=== PATIENT | male | born 1945 | race Hispanic/Latino ===

== ENCOUNTER 2019-11-15 22:56 | Inpatient (IN) | payer MEDICARE ==
[~2019-11-15] VITALS: Ht 172.7 cm; Wt 79.4 kg
[2019-11-16 10:07] VITALS: BP 132/54
[2019-11-16 11:00] VITALS: BP 148/68
--- NOTE | 2019-11-16 11:06 | NUR ---
SPOKE WITH ANGELIA DEL CID NP AND MADE HIM AWARE OF THE NEW ADMISSION.
[2019-11-16] MEDS ORDERED: ACETAMINOPHEN 325 MG TAB PO PRN ×2 (11:30)
[2019-11-16] MEDS ORDERED: GUAIFENESIN-DM 200/20 MG 10 ML PO PRN (11:30)
[2019-11-16] MEDS ORDERED: ERGOCALCIFEROL (VITAMIN D2) 50,000 UNIT CAPSULE PO SCH (11:30)
[2019-11-16] MEDS: AZITHROMYCIN 500MG+NS 250ML 250 ML IV SCH (12:55)
[2019-11-16] MEDS: CEFTRIAXONE SODIUM 1 GM IVP SCH ×2 (12:55→22:44)
[2019-11-16 13:33] LABS: CREATININE 1.1 mg/dL (0.5-1.5); POTASSIUM 4.8 mmol/L (3.5-5.1)
[2019-11-16 13:42] LABS: ALBUMIN 2.2 g/dL (3.5-5.0); BILIRUBIN,TOTAL 0.3 mg/dL (0.2-1.0); TOTAL PROTEIN, SERUM 7.4 g/dL (6.0-8.3)
[2019-11-16 13:50] LABS: CRP QUANTITATIVE 194.6 mg/L (0.00-9.0)
[2019-11-16 15:00] VITALS: BP 136/55
--- NOTE | 2019-11-16 15:40 | NUR ---
MD MUELLER made aware of d-dimer 929, stated she will put in orders
[2019-11-16] MEDS: METHYLPREDNISOLONE SOD SUCC 40MG/ML 1ML IVP SCH ×2 (16:33→20:40)
--- NOTE | 2019-11-16 18:27 | NUR ---
Pt alert, showed no signs and symptoms of distress, pt was told his today and was upset at first but pt remained calm and stable, ABT with no adverse reactions, pt stated no pain,
[2019-11-16] MEDS: FAMOTIDINE/PF 20 MG/2 ML VIAL IV SCH (20:40)
[2019-11-16 21:51] VITALS: BP 147/75
[2019-11-17 00:43] VITALS: BP 149/56
[2019-11-17 04:19] VITALS: BP 132/75
[2019-11-17 05:18] LABS: BASOPHILS % (AUTO) 0.2 % (0.0-5.0); HEMATOCRIT 44.7 % (42-54); LYMPHOCYTES % (AUTO) 5.9 % (21.0-51.0); MEAN CORPUSCULAR HEMOGLOBIN 28.9 pg (27.0-33.0); MEAN CORPUSCULAR HGB CONC 32.2 g/dL (32.0-36.0); MEAN CORPUSCULAR VOLUME 89.8 fL (79-99); MONOCYTES % (AUTO) 2.1 % (3.0-13.0); NEUTROPHILS % (AUTO) 91.1 % (40.0-77.0); PLATELET COUNT (AUTO) 521 K/uL (130-400); RED BLOOD CELL COUNT(AUTO) 4.98 MIL/uL (4.50-6.20); RED CELL DISTRIBUTION WIDTH 12.8 % (11.0-15.5); WHITE BLOOD COUNT (AUTO) 11.8 K/uL (4.8-10.8)
[2019-11-17 05:31] LABS: CREATININE 1.1 mg/dL (0.5-1.5); POTASSIUM 4.4 mmol/L (3.5-5.1)
[2019-11-17 05:36] LABS: ALBUMIN 2.2 g/dL (3.5-5.0); BILIRUBIN,TOTAL 0.3 mg/dL (0.2-1.0); CRP QUANTITATIVE 102.8 mg/L (0.00-9.0); TOTAL PROTEIN, SERUM 7.1 g/dL (6.0-8.3)
[2019-11-17 08:00] VITALS: BP 146/68
[2019-11-17] MEDS: FAMOTIDINE/PF 20 MG/2 ML VIAL IV SCH ×2 (08:05→19:43)
[2019-11-17] MEDS: METHYLPREDNISOLONE SOD SUCC 40MG/ML 1ML IVP SCH ×3 (08:05→19:43)
[2019-11-17] MEDS: ZINC SULFATE 220 CAPSULE PO SCH (08:06)
[2019-11-17] MEDS: ASCORBIC ACID 500 MG TAB PO SCH (08:06)
[2019-11-17] MEDS: ENOXAPARIN SODIUM 40 MG/0.4 ML SYRINGE SQ SCH (08:07)
[2019-11-17] MEDS ORDERED: ENOXAPARIN SODIUM 40 MG/0.4 ML SYRINGE SQ SCH (09:00)
[2019-11-17] MEDS: AZITHROMYCIN 500MG+NS 250ML 250 ML IV SCH (11:35)
[2019-11-17] MEDS: CEFTRIAXONE SODIUM 1 GM IVP SCH ×2 (11:35→23:30)
[2019-11-17 12:00] VITALS: BP 153/66
[2019-11-17] MEDS: PHARMACY COMMUNICATION MISC SCH ×2 (12:45→20:45)
[2019-11-17 16:00] VITALS: BP 163/82
--- NOTE | 2019-11-17 16:48 | NUR ---
INITIAL SW spoke to patient's daughter, Melvi Knutson. Patient lived with spouse but spouse at this hospital on 11/16/2019. He lives in [place]. Patient has no home services or DME. Patient is able to complete ADL's independently and drives. PCP is Dr. Dangelo Smith. Pharmacy is [facility] in [place]. DCP is home. Addendum: 11/17/19 at 1650 by NENITA GOMES SS Amended: Links added.
[2019-11-17 20:40] VITALS: BP 148/68
[2019-11-18 04:12] LABS: BASOPHILS % (AUTO) 0.2 % (0.0-5.0); HEMATOCRIT 40.6 % (42-54); MEAN CORPUSCULAR HEMOGLOBIN 28.8 pg (27.0-33.0); MEAN CORPUSCULAR HGB CONC 33.3 g/dL (32.0-36.0); MEAN CORPUSCULAR VOLUME 86.8 fL (79-99); MONOCYTES % (AUTO) 5.7 % (3.0-13.0); NEUTROPHILS % (AUTO) 90.6 % (40.0-77.0); PLATELET COUNT (AUTO) 316 K/uL (130-400); RED BLOOD CELL COUNT(AUTO) 4.68 MIL/uL (4.50-6.20); RED CELL DISTRIBUTION WIDTH 12.4 % (11.0-15.5); WHITE BLOOD COUNT (AUTO) 13.2 K/uL (4.8-10.8)
[2019-11-18 04:17] LABS: CREATININE 1.1 mg/dL (0.5-1.5); POTASSIUM 4.5 mmol/L (3.5-5.1)
[2019-11-18 05:44] VITALS: BP 154/82
[2019-11-18 08:00] VITALS: BP 144/65
[2019-11-18] MEDS: ASCORBIC ACID 500 MG TAB PO SCH (09:03)
[2019-11-18] MEDS: METHYLPREDNISOLONE SOD SUCC 40MG/ML 1ML IVP SCH ×3 (09:03→19:25)
[2019-11-18] MEDS: FAMOTIDINE/PF 20 MG/2 ML VIAL IV SCH ×2 (09:03→19:25)
[2019-11-18] MEDS: ENOXAPARIN SODIUM 40 MG/0.4 ML SYRINGE SQ SCH (09:04)
[2019-11-18] MEDS: ZINC SULFATE 220 CAPSULE PO SCH (09:04)
[2019-11-18] MEDS: AZITHROMYCIN 500MG+NS 250ML 250 ML IV SCH (11:44)
[2019-11-18] MEDS: CEFTRIAXONE SODIUM 1 GM IVP SCH (11:44)
[2019-11-18 12:00] VITALS: BP 167/72
[2019-11-18 16:00] VITALS: BP 166/72
[2019-11-18] MEDS ORDERED: PHARMACY COMMUNICATION MISC SCH ×2 (16:15→17:45)
[2019-11-18] MEDS ORDERED: COMPOUND IV REFRIGERATED 1 EACH IVSOLN MISC PRN (18:00)
[2019-11-18] MEDS ORDERED: IVERMECTIN 3 MG TAB PO ONE (18:30)
[2019-11-18 19:30] VITALS: BP 163/73
[2019-11-18] MEDS ORDERED: REMDESIVIR (EUA) 520 200 MG in SODIUM CHLORIDE 0.9% 250 ML IV ONE (20:00)
--- NOTE | 2019-11-18 21:59 | NUR ---
Pt laying flat in bed on his back, alert, pt stated no pain, showed no signs and symptoms of distress, ABT with no adverse reaction, Remdesivir given, pt is on oxygen therapy Venti mask on 50% oxygen sat at 96%, will continue to monitor pt,
[2019-11-19] VITALS: BP 151/69
[2019-11-19] MEDS: CEFTRIAXONE SODIUM 1 GM IVP SCH ×3 (00:11→23:10)
[2019-11-19 04:00] VITALS: BP 155/61
[2019-11-19 07:31] LABS: BASOPHILS % (AUTO) 0.2 % (0.0-5.0); HEMATOCRIT 42.7 % (42-54); LYMPHOCYTES % (AUTO) 3.5 % (21.0-51.0); MEAN CORPUSCULAR HEMOGLOBIN 28.6 pg (27.0-33.0); MEAN CORPUSCULAR HGB CONC 33.3 g/dL (32.0-36.0); MEAN CORPUSCULAR VOLUME 85.9 fL (79-99); MONOCYTES % (AUTO) 5.9 % (3.0-13.0); NEUTROPHILS % (AUTO) 89.3 % (40.0-77.0); PLATELET COUNT (AUTO) 295 K/uL (130-400); RED BLOOD CELL COUNT(AUTO) 4.97 MIL/uL (4.50-6.20); RED CELL DISTRIBUTION WIDTH 12.4 % (11.0-15.5); WHITE BLOOD COUNT (AUTO) 12.3 K/uL (4.8-10.8)
[2019-11-19 08:00] VITALS: BP 137/66
[2019-11-19] MEDS: ASCORBIC ACID 500 MG TAB PO SCH (08:44)
[2019-11-19] MEDS: FAMOTIDINE/PF 20 MG/2 ML VIAL IV SCH ×2 (08:44→20:31)
[2019-11-19] MEDS: ZINC SULFATE 220 CAPSULE PO SCH (08:44)
[2019-11-19] MEDS: METHYLPREDNISOLONE SOD SUCC 40MG/ML 1ML IVP SCH ×3 (08:44→20:32)
[2019-11-19] MEDS: ENOXAPARIN SODIUM 40 MG/0.4 ML SYRINGE SQ SCH (08:45)
[2019-11-19] MEDS: ONDANSETRON HCL 4 MG/2 ML VIAL IVP PRN (09:59)
[2019-11-19 12:00] VITALS: BP 162/76
[2019-11-19] MEDS: AZITHROMYCIN 500MG+NS 250ML 250 ML IV SCH (12:09)
[2019-11-19 16:00] VITALS: BP 143/79
[2019-11-19 19:30] VITALS: BP 163/73
[2019-11-19] MEDS: REMDESIVIR (EUA) 520 100 MG in SODIUM CHLORIDE 0.9% 250 ML IV SCH (20:30)
[2019-11-20] VITALS (7 sets, daily range): BP systolic 135–158; BP diastolic 67–83
[2019-11-20 04:57] LABS: BASOPHILS % (AUTO) 0.2 % (0.0-5.0); HEMATOCRIT 39.2 % (42-54); LYMPHOCYTES % (AUTO) 2.8 % (21.0-51.0); MEAN CORPUSCULAR HEMOGLOBIN 28.5 pg (27.0-33.0); MEAN CORPUSCULAR HGB CONC 33.4 g/dL (32.0-36.0); MEAN CORPUSCULAR VOLUME 85.4 fL (79-99); MONOCYTES % (AUTO) 5.8 % (3.0-13.0); NEUTROPHILS % (AUTO) 89.7 % (40.0-77.0); PLATELET COUNT (AUTO) 244 K/uL (130-400); RED BLOOD CELL COUNT(AUTO) 4.59 MIL/uL (4.50-6.20); RED CELL DISTRIBUTION WIDTH 12.4 % (11.0-15.5)
[2019-11-20 05:08] LABS: POTASSIUM 4.5 mmol/L (3.5-5.1)
[2019-11-20] MEDS: FAMOTIDINE/PF 20 MG/2 ML VIAL IV SCH ×2 (07:51→20:15)
[2019-11-20] MEDS: ZINC SULFATE 220 CAPSULE PO SCH (07:51)
[2019-11-20] MEDS: ASCORBIC ACID 500 MG TAB PO SCH (07:51)
[2019-11-20] MEDS: METHYLPREDNISOLONE SOD SUCC 40MG/ML 1ML IVP SCH ×3 (07:51→20:31)
[2019-11-20] MEDS: ENOXAPARIN SODIUM 40 MG/0.4 ML SYRINGE SQ SCH (07:52)
[2019-11-20] MEDS: AZITHROMYCIN 500MG+NS 250ML 250 ML IV SCH (11:06)
[2019-11-20] MEDS: ONDANSETRON HCL 4 MG/2 ML VIAL IVP PRN (11:07)
[2019-11-20] MEDS: CEFTRIAXONE SODIUM 1 GM IVP SCH ×2 (11:08→22:32)
[2019-11-20] MEDS: ENOXAPARIN SODIUM 80 MG/0.8 ML SQ SCH ×2 (14:53→14:57)
--- NOTE | 2019-11-20 18:33 | NUR ---
Pt Covid pcr test came back positive, pt and daughter Vira was notified, pt is alert sitting up in chair onside of the bed, venti mask on 50% oxygen, showed no signs and symptoms of distress, will continue to monitor pt
[2019-11-20] MEDS: REMDESIVIR (EUA) 520 100 MG in SODIUM CHLORIDE 0.9% 250 ML IV SCH (20:14)
--- NOTE | 2019-11-20 20:45 | NUR ---
TEACHING PATIENT AWAKE, ALERT , OX3,CONTINUE ON VM 50 %, TEACH PATIENT PLAN OF CARE AND EXPECTED OUTCOME, teACH PATIENT PENDING PLASMA, PATIENT AGREES WITH PLASMA TRANSFUSION, CONSENT OBTAINED, Patient verbalizes understanding via teach back
[2019-11-21 04:00] VITALS: BP 158/67
[2019-11-21] MEDS: ASCORBIC ACID 500 MG TAB PO SCH (08:14)
[2019-11-21] MEDS: ZINC SULFATE 220 CAPSULE PO SCH (08:14)
[2019-11-21] MEDS: METHYLPREDNISOLONE SOD SUCC 40MG/ML 1ML IVP SCH ×3 (08:14→20:19)
[2019-11-21] MEDS: ENOXAPARIN SODIUM 80 MG/0.8 ML SQ SCH ×2 (08:15→20:20)
[2019-11-21] MEDS: FAMOTIDINE/PF 20 MG/2 ML VIAL IV SCH ×2 (08:15→20:19)
[2019-11-21 09:40] VITALS: BP 147/73
[2019-11-21] MEDS: ONDANSETRON HCL 4 MG/2 ML VIAL IVP PRN (10:25)
[2019-11-21] MEDS: AZITHROMYCIN 500MG+NS 250ML 250 ML IV SCH (11:28)
[2019-11-21] MEDS: CEFTRIAXONE SODIUM 1 GM IVP SCH ×2 (11:28→20:19)
[2019-11-21 12:22] VITALS: BP 166/77
[2019-11-21 16:27] VITALS: BP 120/69
[2019-11-21] MEDS: REMDESIVIR (EUA) 520 100 MG in SODIUM CHLORIDE 0.9% 250 ML IV SCH (20:21)
[2019-11-21 21:13] VITALS: BP 120/47
[2019-11-21] MEDS ORDERED: SODIUM CHLORIDE 0.9% 500ML 500 ML IV ONE (21:58)
--- NOTE | 2019-11-21 22:15 | NUR ---
plasma first unit of plasma started as ordered, see plasma record
--- NOTE | 2019-11-21 23:05 | NUR ---
plasma first plasma complete no reaction noted, tolerated well
--- NOTE | 2019-11-21 23:50 | NUR ---
2 nd unit plasma 2nd unit of plasma started , see plasma administration record
[2019-11-21 23:56] VITALS: BP 195/88
[2019-11-22] MEDS: BENZONATATE 100 MG CAPSULE PO PRN (00:02)
--- NOTE | 2019-11-22 00:30 | NUR ---
2nd unit plasma 2nd unit plasma complete , tolerated well, no reaction noted
[2019-11-22 06:56] VITALS: BP 137/63
[2019-11-22] MEDS ORDERED: HYDRALAZINE HCL 20 MG/ML VIAL IV PRN (07:30)
[2019-11-22] MEDS: ASCORBIC ACID 500 MG TAB PO SCH (08:34)
[2019-11-22] MEDS: METHYLPREDNISOLONE SOD SUCC 40MG/ML 1ML IVP SCH (08:34)
[2019-11-22] MEDS: FAMOTIDINE/PF 20 MG/2 ML VIAL IV SCH ×2 (08:34→20:40)
[2019-11-22] MEDS: ZINC SULFATE 220 CAPSULE PO SCH (08:35)
[2019-11-22] MEDS: ENOXAPARIN SODIUM 80 MG/0.8 ML SQ SCH ×2 (08:35→20:40)
[2019-11-22 08:50] VITALS: BP 147/53
[2019-11-22 11:06] VITALS: BP 138/86
[2019-11-22] MEDS: AZITHROMYCIN 500MG+NS 250ML 250 ML IV SCH (12:42)
[2019-11-22] MEDS: CEFTRIAXONE SODIUM 1 GM IVP SCH ×2 (12:42→20:40)
[2019-11-22 17:15] VITALS: BP 116/44
--- NOTE | 2019-11-22 18:23 | NUR ---
Pt alert sitting in chair by his bed, showed no signs and symptoms of distress, pt stated no pain, family sent food pt do not have an appetite, pt on 50% venti mask oxygen saturation of 94%,
[2019-11-22] MEDS: REMDESIVIR (EUA) 520 100 MG in SODIUM CHLORIDE 0.9% 250 ML IV SCH (20:43)
[2019-11-22 21:03] VITALS: BP 132/82
[2019-11-23] VITALS (7 sets, daily range): BP systolic 135–149; BP diastolic 44–100
[2019-11-23 04:04] LABS: BASOPHILS % (AUTO) 0.2 % (0.0-5.0); EOSINOPHILS % (AUTO) 0.4 % (0.0-8.0); HEMATOCRIT 40.3 % (42-54); MEAN CORPUSCULAR HEMOGLOBIN 28.6 pg (27.0-33.0); MEAN CORPUSCULAR HGB CONC 33.3 g/dL (32.0-36.0); MEAN CORPUSCULAR VOLUME 85.9 fL (79-99); MONOCYTES % (AUTO) 4.4 % (3.0-13.0); NEUTROPHILS % (AUTO) 88.6 % (40.0-77.0); PLATELET COUNT (AUTO) 433 K/uL (130-400); RED BLOOD CELL COUNT(AUTO) 4.69 MIL/uL (4.50-6.20); RED CELL DISTRIBUTION WIDTH 12.6 % (11.0-15.5); WHITE BLOOD COUNT (AUTO) 20.1 K/uL (4.8-10.8)
[2019-11-23 04:16] LABS: CREATININE 1.1 mg/dL (0.5-1.5); CRP QUANTITATIVE 57.6 mg/L (0.00-9.0); POTASSIUM 3.3 mmol/L (3.5-5.1)
[2019-11-23] MEDS ORDERED: POTASSIUM CHLORIDE 10% ELIXIR 20 MEQ/15 ML UDCUP PO PRN (04:45)
[2019-11-23] MEDS ORDERED: POTASSIUM CHLORIDE 20MEQ/100ML 100 ML IV PRN (04:45)
[2019-11-23] MEDS ORDERED: LIDOCAINE HCL-MPF 1% 2ML VIAL IV PRN (04:45)
[2019-11-23] MEDS ORDERED: POTASSIUM CHLORIDE 20 MEQ ERTAB PO ONE (04:58)
[2019-11-23] MEDS ORDERED: DEXAMETHASONE 4 MG TAB PO SCH (08:00)
[2019-11-23] MEDS: ASCORBIC ACID 500 MG TAB PO SCH (09:32)
[2019-11-23] MEDS: ENOXAPARIN SODIUM 80 MG/0.8 ML SQ SCH ×2 (09:32→21:56)
[2019-11-23] MEDS: FAMOTIDINE/PF 20 MG/2 ML VIAL IV SCH ×2 (09:32→21:56)
[2019-11-23] MEDS: ZINC SULFATE 220 CAPSULE PO SCH (09:32)
--- NOTE | 2019-11-23 19:45 | NUR ---
PM Assessment Received pt sited on his bedside chair, on Venti Mask at 40%, routine assessment done, plan of care discuss, pt made once his oxygen saturation will be reading in the high 90's I will try to wean his oxygen consumption, at this time we will keep it at 40% as reported O2 saturation at 92%. Pt denies discomfort, claimed sometimes he takes of his mask when getting on off the bed as it does not reach around his bed, or if he needs to use the bathroom, denies SOB.
[2019-11-24 00:30] VITALS: BP 161/72
--- NOTE | 2019-11-24 05:35 | NUR ---
Re: Desaturation Pt noted had ambulated to the bathroom without his O2 to have a BM, positive SOB, O2 saturation checked = 82%, assisted back to bed, Venti mask increased to 50% at this time.
[2019-11-24 06:18] VITALS: BP 108/25
[2019-11-24 08:15] VITALS: BP 148/62
[2019-11-24] MEDS: ASCORBIC ACID 500 MG TAB PO SCH (08:37)
[2019-11-24] MEDS: ZINC SULFATE 220 CAPSULE PO SCH (08:48)
[2019-11-24] MEDS: FAMOTIDINE/PF 20 MG/2 ML VIAL IV SCH ×2 (08:48→20:49)
[2019-11-24] MEDS: ENOXAPARIN SODIUM 80 MG/0.8 ML SQ SCH ×2 (08:49→20:50)
[2019-11-24 12:09] VITALS: BP 121/77
[2019-11-24 15:54] VITALS: BP 142/103
--- NOTE | 2019-11-24 17:33 | NUR ---
pt awake and oriented, denies pain and shortness of breath. pt requesting shower today. Patient patient care associate able to assist pt to the bathroom with portable oxygen tank to maintain oxygenation. Pt tolerated well.
[2019-11-24 21:23] VITALS: BP 158/73
[2019-11-25 01:12] VITALS: BP 145/60
[2019-11-25 06:39] VITALS: BP 144/56
[2019-11-25 08:46] VITALS: BP 129/54
[2019-11-25] MEDS: FAMOTIDINE/PF 20 MG/2 ML VIAL IV SCH ×2 (09:10→20:40)
[2019-11-25] MEDS: ASCORBIC ACID 500 MG TAB PO SCH (09:11)
[2019-11-25] MEDS: ZINC SULFATE 220 CAPSULE PO SCH (09:11)
[2019-11-25] MEDS: LORATADINE/PSEUDOEPHED 5/120 MG 1 EACH TAB.SR.12H PO SCH ×2 (09:11→20:40)
[2019-11-25] MEDS: ENOXAPARIN SODIUM 80 MG/0.8 ML SQ SCH ×2 (09:12→20:41)
[2019-11-25] MEDS: DEXAMETHASONE SOD PHOSPHATE 4 MG/ML 1ML VIAL IV SCH (09:13)
[2019-11-25 12:56] VITALS: BP 146/72
[2019-11-25 16:30] VITALS: BP 150/86
--- NOTE | 2019-11-25 17:23 | NUR ---
pt denies pain and discomfort today, up to chair for meals. Pt on the phone speaking with family no resp distress observed or reported. Rounded with POWER MANAGER regarding plan of care. per POWER MANAGER pt's oxygen saturation will continued to be monitored until stable for discharge.
[2019-11-25 21:53] VITALS: BP 141/82
[2019-11-26] VITALS (7 sets, daily range): BP systolic 113–171; BP diastolic 58–89
[2019-11-26 06:04] LABS: BASOPHILS % (AUTO) 0.1 % (0.0-5.0); EOSINOPHILS % (AUTO) 0.1 % (0.0-8.0); HEMATOCRIT 36.4 % (42-54); LYMPHOCYTES % (AUTO) 4.8 % (21.0-51.0); MEAN CORPUSCULAR HEMOGLOBIN 29.1 pg (27.0-33.0); MEAN CORPUSCULAR HGB CONC 34.1 g/dL (32.0-36.0); MEAN CORPUSCULAR VOLUME 85.4 fL (79-99); MONOCYTES % (AUTO) 5.5 % (3.0-13.0); PLATELET COUNT (AUTO) 359 K/uL (130-400); RED BLOOD CELL COUNT(AUTO) 4.26 MIL/uL (4.50-6.20); RED CELL DISTRIBUTION WIDTH 12.7 % (11.0-15.5); WHITE BLOOD COUNT (AUTO) 14.7 K/uL (4.8-10.8)
[2019-11-26 06:39] LABS: ALBUMIN 1.9 g/dL (3.5-5.0); BILIRUBIN,TOTAL 0.6 mg/dL (0.2-1.0); POTASSIUM 3.5 mmol/L (3.5-5.1)
[2019-11-26 06:40] LABS: CREATININE 0.8 mg/dL (0.5-1.5); CRP QUANTITATIVE 79.7 mg/L (0.00-9.0); TOTAL PROTEIN, SERUM 5.4 g/dL (6.0-8.3)
--- NOTE | 2019-11-26 08:00 | NUR ---
PT AAO X 3 REVIEW PLAN OF CARE, ON 40% VENTI MASK, DENIES ANY SOB. PT SITTING UP . CALL LIGHT IN REACH..
[2019-11-26] MEDS: ZINC SULFATE 220 CAPSULE PO SCH (09:25)
[2019-11-26] MEDS: ASCORBIC ACID 500 MG TAB PO SCH (09:25)
[2019-11-26] MEDS: FAMOTIDINE/PF 20 MG/2 ML VIAL IV SCH ×2 (09:25→21:12)
[2019-11-26] MEDS: DEXAMETHASONE SOD PHOSPHATE 4 MG/ML 1ML VIAL IV SCH (09:26)
[2019-11-26] MEDS: ENOXAPARIN SODIUM 80 MG/0.8 ML SQ SCH ×2 (09:27→21:10)
[2019-11-26] MEDS: LORATADINE/PSEUDOEPHED 5/120 MG 1 EACH TAB.SR.12H PO SCH ×2 (09:30→21:11)
[2019-11-26] MEDS: TRAMADOL HCL 50 MG TABLET PO PRN (15:02)
[2019-11-26] MEDS: POTASSIUM CHLORIDE 20 MEQ ERTAB PO PRN ×2 (15:02→18:10)
[2019-11-27 03:47] VITALS: BP 151/83
[2019-11-27 05:17] LABS: BASOPHILS % (AUTO) 0.1 % (0.0-5.0); EOSINOPHILS % (AUTO) 0.1 % (0.0-8.0); LYMPHOCYTES % (AUTO) 4.7 % (21.0-51.0); MEAN CORPUSCULAR HEMOGLOBIN 28.8 pg (27.0-33.0); MEAN CORPUSCULAR HGB CONC 33.5 g/dL (32.0-36.0); MONOCYTES % (AUTO) 5.4 % (3.0-13.0); NEUTROPHILS % (AUTO) 88.6 % (40.0-77.0); PLATELET COUNT (AUTO) 259 K/uL (130-400); RED BLOOD CELL COUNT(AUTO) 4.65 MIL/uL (4.50-6.20); RED CELL DISTRIBUTION WIDTH 12.8 % (11.0-15.5); WHITE BLOOD COUNT (AUTO) 15.5 K/uL (4.8-10.8)
[2019-11-27 05:29] LABS: ALBUMIN 2.2 g/dL (3.5-5.0); BILIRUBIN,TOTAL 0.6 mg/dL (0.2-1.0); CREATININE 0.8 mg/dL (0.5-1.5); POTASSIUM 4.1 mmol/L (3.5-5.1); TOTAL PROTEIN, SERUM 6.1 g/dL (6.0-8.3)
[2019-11-27 07:30] VITALS: BP 109/56
--- NOTE | 2019-11-27 08:00 | NUR ---
PT UP IN THE CHAIR , PT IS ON A VENTI MASK AT 50% . PT STATED THAT HE FEELS BETTER TODAY. SOME RESP .DISTRESS BUT VERY LITTLE REVIEW THE PLAN OF CARE ,AND CALL LIGHT IN REACH..
[2019-11-27] MEDS: FAMOTIDINE/PF 20 MG/2 ML VIAL IV SCH ×2 (08:37→19:43)
[2019-11-27] MEDS: LORATADINE/PSEUDOEPHED 5/120 MG 1 EACH TAB.SR.12H PO SCH ×2 (08:37→19:43)
[2019-11-27] MEDS: ASCORBIC ACID 500 MG TAB PO SCH (08:38)
[2019-11-27] MEDS: DEXAMETHASONE SOD PHOSPHATE 4 MG/ML 1ML VIAL IV SCH (08:39)
[2019-11-27] MEDS: ZINC SULFATE 220 CAPSULE PO SCH (08:40)
[2019-11-27] MEDS: ENOXAPARIN SODIUM 80 MG/0.8 ML SQ SCH ×2 (08:40→19:51)
[2019-11-27 11:00] VITALS: BP 153/78
--- NOTE | 2019-11-27 11:01 | NUR ---
RDSCREEN - LOS X 11 Pt Admitted with SOB, GBW, COVID PUI. Heart Healthy diet order in place. Tolerating at 75% intake. WBC 15.5, Alb 2.2 (Improving). Zinc, vitamin C supplementation in place. Post plasma Tx, prone positioning. Recommend continue Heart healthy diet order Recommend 30mL ProMod QD RD to continue to monitor. Please notify RD as additional nutrition concerns arise. Thank you.
[2019-11-27 16:00] VITALS: BP 101/45
--- NOTE | 2019-11-27 17:06 | NUR ---
DAUGHTER NOT WANTING ORDER FOR SOLARA REFERRAL PLACED IN CHART UNTIL SHE SPEAKS TO THE MDS AND THE NURSES. CALL TO DAUGHTER KENNETH JANNIE JONES PLANNING. ORDER FOR SOLARA. EXPLAINED LTACH AND PURPOSE. DAUGHTER STATED WILL SPEAK TO FAMILY.. DAUGHTER STATED THAT SHE DID NOT WANT AN ORDER FOR SOLARA PLACED UNTIL SHE HAS SPOKE TO HER FAMILY AN CM ADVISED HER THE ORDER IS AN MD ORDER AND WILL PLACED IN THE MEDICAL RECORD.T THE REFERRAL ITSELF WILL NOT BE DONE UNTIL/UNLESS WE GET CONSENT FOR RELEASE OF INFORMATION. THIS CM NOT SURE THAT DAUGHTER UNDERSTOOD THE DIFFERENCE. ORDER PLACED IN MED RECORD THAT WAS RECEIVED MIDDAY. WILL ADVISED RNS THAT DAUGHTER WILL BE CALLING WITH QUESTIONS RE JEWELL
[2019-11-27 20:45] VITALS: BP 110/61
[2019-11-28] VITALS (7 sets, daily range): BP systolic 98–156; BP diastolic 49–74
[2019-11-28 04:57] LABS: BASOPHILS % (AUTO) 0.1 % (0.0-5.0); EOSINOPHILS % (AUTO) 0.3 % (0.0-8.0); HEMATOCRIT 38.8 % (42-54); MEAN CORPUSCULAR HEMOGLOBIN 28.5 pg (27.0-33.0); MEAN CORPUSCULAR HGB CONC 33.5 g/dL (32.0-36.0); MEAN CORPUSCULAR VOLUME 85.1 fL (79-99); MONOCYTES % (AUTO) 4.9 % (3.0-13.0); NEUTROPHILS % (AUTO) 87.4 % (40.0-77.0); PLATELET COUNT (AUTO) 380 K/uL (130-400); RED BLOOD CELL COUNT(AUTO) 4.56 MIL/uL (4.50-6.20); RED CELL DISTRIBUTION WIDTH 12.9 % (11.0-15.5); WHITE BLOOD COUNT (AUTO) 13.5 K/uL (4.8-10.8)
[2019-11-28 05:47] LABS: ALBUMIN 2.1 g/dL (3.5-5.0); BILIRUBIN,TOTAL 0.6 mg/dL (0.2-1.0); CREATININE 0.8 mg/dL (0.5-1.5); CRP QUANTITATIVE 71.4 mg/L (0.00-9.0); POTASSIUM 3.6 mmol/L (3.5-5.1); TOTAL PROTEIN, SERUM 5.7 g/dL (6.0-8.3)
[2019-11-28] MEDS: POTASSIUM CHLORIDE 20 MEQ ERTAB PO PRN ×3 (05:50→08:10)
[2019-11-28] MEDS: FAMOTIDINE/PF 20 MG/2 ML VIAL IV SCH ×2 (08:08→21:46)
[2019-11-28] MEDS: DEXAMETHASONE SOD PHOSPHATE 4 MG/ML 1ML VIAL IV SCH (08:08)
[2019-11-28] MEDS: ZINC SULFATE 220 CAPSULE PO SCH (08:08)
[2019-11-28] MEDS: ASCORBIC ACID 500 MG TAB PO SCH (08:08)
[2019-11-28] MEDS: BENZONATATE 100 MG CAPSULE PO PRN (08:08)
[2019-11-28] MEDS: ENOXAPARIN SODIUM 80 MG/0.8 ML SQ SCH ×2 (08:09→21:47)
[2019-11-28] MEDS: LORATADINE/PSEUDOEPHED 5/120 MG 1 EACH TAB.SR.12H PO SCH ×2 (08:59→21:46)
--- NOTE | 2019-11-28 15:54 | NUR ---
MORE DISCHARGE PLANNING- SPOKE TO PATIENT//DAUGHTER, UP IN CHAIR, EYES BRIGHT, BACK STRAIGHT. VENTIMASK AT 15 L. EXPLAINED DISCHARGE NEEDS- STILL ON OXYGEN AT A LEVEL THAT CANNOT BE DONE AT HOME. PATIENT STATES THERE ARE TWO CENTERS IN [place] OR [place]SE TO [place] THAT HE WOULD BE OK TO GO TO- STATES HIS DAUGHTER KNOWS THEIR NAME, AND MAYBE HE COULD GO THERE BECAUSE HE WANTS TO BE CLOSER TO HOME. ASKED CM TO CALL DAUGHTER. CALL TO DAUGHTER, SHE STATES WHEN SHE TALKED TO HIM HE HAD SAID HE DIDN'T WANT TO GO ANYWHERE. STATES THERE IS A [facility] CLOSE TO WHERE SHE LIVES BUT SHE CANNOT DECIDE RIGHT NOW AND MAYBE CM CAN TALK ABOUT IT IN A FEW DAYS. WILL CALL MEDICARE COORDINATOR SO YUMI RE ON THE SAME PAGE ABOUT WEANING FOR POSSIBLE PLACEMENT
[2019-11-29 03:54] VITALS: BP 134/80
[2019-11-29 05:17] LABS: BASOPHILS % (AUTO) 0.1 % (0.0-5.0); EOSINOPHILS % (AUTO) 0.7 % (0.0-8.0); HEMATOCRIT 38.9 % (42-54); LYMPHOCYTES % (AUTO) 6.7 % (21.0-51.0); MEAN CORPUSCULAR HEMOGLOBIN 28.6 pg (27.0-33.0); MEAN CORPUSCULAR HGB CONC 33.2 g/dL (32.0-36.0); MEAN CORPUSCULAR VOLUME 86.3 fL (79-99); MONOCYTES % (AUTO) 5.6 % (3.0-13.0); NEUTROPHILS % (AUTO) 85.4 % (40.0-77.0); PLATELET COUNT (AUTO) 378 K/uL (130-400); RED BLOOD CELL COUNT(AUTO) 4.51 MIL/uL (4.50-6.20); WHITE BLOOD COUNT (AUTO) 15.1 K/uL (4.8-10.8)
[2019-11-29 05:31] LABS: ALBUMIN 2.2 g/dL (3.5-5.0); BILIRUBIN,TOTAL 0.5 mg/dL (0.2-1.0); CRP QUANTITATIVE 39.9 mg/L (0.00-9.0); POTASSIUM 4.8 mmol/L (3.5-5.1); TOTAL PROTEIN, SERUM 6.1 g/dL (6.0-8.3)
[2019-11-29 08:19] VITALS: BP 155/76
[2019-11-29] MEDS: LORATADINE/PSEUDOEPHED 5/120 MG 1 EACH TAB.SR.12H PO SCH ×2 (09:00→21:34)
[2019-11-29] MEDS: DEXAMETHASONE SOD PHOSPHATE 4 MG/ML 1ML VIAL IV SCH (11:29)
[2019-11-29] MEDS: FAMOTIDINE/PF 20 MG/2 ML VIAL IV SCH ×2 (11:29→21:34)
[2019-11-29] MEDS: ZINC SULFATE 220 CAPSULE PO SCH (11:30)
[2019-11-29] MEDS: ASCORBIC ACID 500 MG TAB PO SCH (11:30)
[2019-11-29] MEDS: ENOXAPARIN SODIUM 80 MG/0.8 ML SQ SCH (11:31)
[2019-11-29 11:46] VITALS: BP 128/54
--- NOTE | 2019-11-29 16:00 | NUR ---
cm note call made to daughter antonio, and updated on ltach level of care vs, snf, difference. states that she has discussed Solara topic with md, and states she does not wish to give consent at this time. prefers that he go home with Home health instead. informed her that there is an [facility] in [facility], which would be closer to their home in [place]. she verbalizes understanding. states will continue to discuss with md and let cm know of her decision.
[2019-11-29 16:37] VITALS: BP 116/56
[2019-11-29 20:31] VITALS: BP 115/53
[2019-11-29 23:38] VITALS: BP 161/77
--- NOTE | 2019-11-29 23:57 | NUR ---
Pt resting comfortably in bed and asleep. Blood pressure elevated at SBP 161. This is consistent with patient's vital sign trends. Will continue to monitor and recheck vital signs at next interval.
[2019-11-30 04:00] VITALS: BP 139/64
[2019-11-30 08:37] VITALS: BP 117/53
[2019-11-30] MEDS: DEXAMETHASONE SOD PHOSPHATE 4 MG/ML 1ML VIAL IV SCH (09:11)
[2019-11-30] MEDS: FAMOTIDINE/PF 20 MG/2 ML VIAL IV SCH ×2 (09:11→19:59)
[2019-11-30 09:12] LABS: BASOPHILS % (AUTO) 0.2 % (0.0-5.0); EOSINOPHILS % (AUTO) 0.3 % (0.0-8.0); HEMATOCRIT 40.9 % (42-54); LYMPHOCYTES % (AUTO) 5.4 % (21.0-51.0); MEAN CORPUSCULAR HEMOGLOBIN 29.1 pg (27.0-33.0); MEAN CORPUSCULAR HGB CONC 33.5 g/dL (32.0-36.0); MEAN CORPUSCULAR VOLUME 86.8 fL (79-99); MONOCYTES % (AUTO) 4.6 % (3.0-13.0); NEUTROPHILS % (AUTO) 88.2 % (40.0-77.0); PLATELET COUNT (AUTO) 415 K/uL (130-400); RED BLOOD CELL COUNT(AUTO) 4.71 MIL/uL (4.50-6.20); RED CELL DISTRIBUTION WIDTH 12.9 % (11.0-15.5); WHITE BLOOD COUNT (AUTO) 18.9 K/uL (4.8-10.8)
[2019-11-30] MEDS: ZINC SULFATE 220 CAPSULE PO SCH (09:12)
[2019-11-30] MEDS: LORATADINE/PSEUDOEPHED 5/120 MG 1 EACH TAB.SR.12H PO SCH ×2 (09:12→19:59)
[2019-11-30] MEDS: ASCORBIC ACID 500 MG TAB PO SCH (09:12)
[2019-11-30] MEDS: ENOXAPARIN SODIUM 40 MG/0.4 ML SYRINGE SQ SCH (09:13)
[2019-11-30 09:23] LABS: CREATININE 0.9 mg/dL (0.5-1.5); POTASSIUM 3.9 mmol/L (3.5-5.1)
[2019-11-30 12:10] VITALS: BP 145/66
[2019-11-30 16:49] VITALS: BP 114/60
[2019-11-30 20:25] VITALS: BP 122/55
[2019-11-30 23:38] VITALS: BP 104/69
[2019-12-01 04:00] VITALS: BP 142/69
[2019-12-01 08:18] VITALS: BP 145/64
[2019-12-01] MEDS: ZINC SULFATE 220 CAPSULE PO SCH (08:29)
[2019-12-01] MEDS: LORATADINE/PSEUDOEPHED 5/120 MG 1 EACH TAB.SR.12H PO SCH ×2 (08:29→20:45)
[2019-12-01] MEDS: ASCORBIC ACID 500 MG TAB PO SCH (08:29)
[2019-12-01] MEDS: DEXAMETHASONE 4 MG TAB PO SCH (08:30)
[2019-12-01] MEDS: FAMOTIDINE/PF 20 MG/2 ML VIAL IV SCH ×2 (08:31→20:45)
[2019-12-01] MEDS: ENOXAPARIN SODIUM 40 MG/0.4 ML SYRINGE SQ SCH (08:31)
[2019-12-01 11:18] VITALS: BP 126/56
--- NOTE | 2019-12-01 11:29 | NUR ---
PT IS TAKING SHOWER, NC 2 3 LITERS, VS STABLE NO COMPLICATION
--- NOTE | 2019-12-01 12:45 | NUR ---
DR. REID CAME TO SEE PT AT BEDSIDE, PT. SITTING IN CHAIR ON 3 LITERS SPO2 97 %, PER DR. REID, WEAN PT TO 2 LITERS, WILL CONTINUE TO MONITOR PT.
[2019-12-01 16:13] VITALS: BP 127/65
--- NOTE | 2019-12-01 16:19 | NUR ---
02 PT IS ON 1 LITER NC SPO2 94% WILL CONTINUE TO MONITOR AND WEAN TO ROOM AIR.
--- NOTE | 2019-12-01 17:01 | NUR ---
O2 PT DIDN'T TOLERATE BEING ON ONE LITER SPO2 89%, BACK ON 2 LITERS SPO2 94%
[2019-12-01 19:20] VITALS: BP 132/66
[2019-12-01 23:33] VITALS: BP 143/63
[2019-12-02 03:57] VITALS: BP 153/69
[2019-12-02 06:09] LABS: BASOPHILS % (AUTO) 0.1 % (0.0-5.0); EOSINOPHILS % (AUTO) 1.4 % (0.0-8.0); HEMATOCRIT 41.1 % (42-54); LYMPHOCYTES % (AUTO) 9.6 % (21.0-51.0); MEAN CORPUSCULAR HEMOGLOBIN 29.1 pg (27.0-33.0); MEAN CORPUSCULAR HGB CONC 33.1 g/dL (32.0-36.0); PLATELET COUNT (AUTO) 341 K/uL (130-400); RED BLOOD CELL COUNT(AUTO) 4.67 MIL/uL (4.50-6.20); RED CELL DISTRIBUTION WIDTH 13.2 % (11.0-15.5); WHITE BLOOD COUNT (AUTO) 12.2 K/uL (4.8-10.8)
[2019-12-02 06:30] LABS: POTASSIUM 4.6 mmol/L (3.5-5.1)
[2019-12-02 08:00] VITALS: BP 105/85
[2019-12-02] MEDS: ZINC SULFATE 220 CAPSULE PO SCH (09:56)
[2019-12-02] MEDS: LORATADINE/PSEUDOEPHED 5/120 MG 1 EACH TAB.SR.12H PO SCH ×2 (09:56→20:52)
[2019-12-02] MEDS: ASCORBIC ACID 500 MG TAB PO SCH (09:57)
[2019-12-02] MEDS: FAMOTIDINE/PF 20 MG/2 ML VIAL IV SCH ×2 (09:57→20:52)
[2019-12-02] MEDS: DEXAMETHASONE 4 MG TAB PO SCH (09:57)
[2019-12-02] MEDS: ENOXAPARIN SODIUM 40 MG/0.4 ML SYRINGE SQ SCH (09:58)
[2019-12-02 12:00] VITALS: BP 132/64
[2019-12-02 16:00] VITALS: BP 143/61
--- NOTE | 2019-12-02 16:12 | NUR ---
CM NOTE/[facility] AND CONCENTRATOR LENDING NEW ORDER FOR HOME OXYGEN REFERRAL. MORALES CRAWFORD, DAUGHTER, CALLED TO INFORM OF OXYGEN NEED, ZHANNA COMPLETED. PATIENT QUALIFIED FOR HOME OXYGEN SATURATING AT 86% AT REST. REFERRAL SENT TO [facility]. DAUGHTER MADE AWARE THAT WE WILL LEND PATIENT A CONCENTRATOR AND PORTABLE TANK FOR HOME USE AND TO RETURN PORTABLE TANK ONCE PATIENT DROPPED OFF AT HOME. PER ERVIN SÁNCHEZ, WILL DC HOME TOMORROW IN AM. I CALLED EARNEST HUMPHRIES, TO INFORM OF CONVERSATION BUT NO ANSWER, WILL TRY LATER. DAUGHTER, MORALES CRAWFORD, MADE AWARE OF POSSIBLE DC IN AM TOMORROW.
[2019-12-02 20:25] VITALS: BP 111/66
[2019-12-03 00:29] VITALS: BP 111/55
[2019-12-03 06:20] LABS: ALBUMIN 2.7 g/dL (3.5-5.0); BILIRUBIN,TOTAL 0.6 mg/dL (0.2-1.0); CREATININE 0.9 mg/dL (0.5-1.5); POTASSIUM 4.3 mmol/L (3.5-5.1); TOTAL PROTEIN, SERUM 6.9 g/dL (6.0-8.3)
[2019-12-03 06:27] LABS: BASOPHILS % (AUTO) 0.1 % (0.0-5.0); HEMATOCRIT 39.6 % (42-54); MEAN CORPUSCULAR HEMOGLOBIN 29.2 pg (27.0-33.0); MEAN CORPUSCULAR HGB CONC 33.1 g/dL (32.0-36.0); MEAN CORPUSCULAR VOLUME 88.2 fL (79-99); MONOCYTES % (AUTO) 5.2 % (3.0-13.0); NEUTROPHILS % (AUTO) 82.9 % (40.0-77.0); PLATELET COUNT (AUTO) 308 K/uL (130-400); RED BLOOD CELL COUNT(AUTO) 4.49 MIL/uL (4.50-6.20); RED CELL DISTRIBUTION WIDTH 13.2 % (11.0-15.5); WHITE BLOOD COUNT (AUTO) 12.4 K/uL (4.8-10.8)
[2019-12-03 06:43] VITALS: BP 138/63
[2019-12-03 08:30] VITALS: BP 124/62
[2019-12-03] MEDS: LORATADINE/PSEUDOEPHED 5/120 MG 1 EACH TAB.SR.12H PO SCH (08:53)
[2019-12-03] MEDS: TRAMADOL HCL 50 MG TABLET PO PRN (08:53)
[2019-12-03] MEDS: FAMOTIDINE/PF 20 MG/2 ML VIAL IV SCH (08:54)
[2019-12-03] MEDS: ZINC SULFATE 220 CAPSULE PO SCH (08:55)
[2019-12-03] MEDS: DEXAMETHASONE 4 MG TAB PO SCH (08:55)
[2019-12-03] MEDS: ASCORBIC ACID 500 MG TAB PO SCH (08:55)
[2019-12-03] MEDS: ENOXAPARIN SODIUM 40 MG/0.4 ML SYRINGE SQ SCH (09:08)
--- NOTE | 2019-12-03 12:27 | NUR ---
CM NOTE/[facility] D[facility] PER ZACHERY IQBAL AT [facility] [address] DME, PATIENT TO HAVE OXYGEN CONCENTRATOR AND PORTABLE TANK DELIVERED TO HOME. PRIMARY NURSE, JESSIE UHMPHRIES, MADE AWARE.
--- NOTE | 2019-12-03 13:46 | NUR ---
PT Iv and tele monitor removed. O2 tank given to patient for transport home. Pt transported in wheelchair to [facility]. Daughter came to vegetable picker patient, discharge instructions and prescriptions explained and given to patient and daughter. no complaints offered. will cont to monitor
== END 2019-12-03 13:40 | disposition home or self-care (01) | DRG 177 ==
LOC: 4DH 11-16 09:46
PROVIDERS: ADMIT Internal Medicine; ATTEND Internal Medicine
PROC: XW033E5 Introduction of Remdesivir Anti-infective into Peripheral Vein, Percutaneous Approach, New Technology Group 5 (ICD-10-PCS; 2019-11-18)
PROC: XW13325 Transfusion of Convalescent Plasma (Nonautologous) into Peripheral Vein, Percutaneous Approach, New Technology Group 5 (ICD-10-PCS; principal; 2019-11-21)
DX: U07.1 COVID-19 (principal); J18.0 Bronchopneumonia, unspecified organism; J96.01 Acute respiratory failure with hypoxia; J12.89 Other viral pneumonia; E86.0 Dehydration
CPT/HCPCS: 36415; 36430; 71045; 71275; 80048; 80053; 82728; 82948; 83615; 84145; 85025; 85378; 86140; 86850; 86900; 86901; 86927; 87426; 94760; 97039; G0378; J0456; J0696; J1100; J1650; J2405; J2920; J3490; J7040; J7050; J8540; U0003